=== PATIENT | female | born 1955 | race Caucasian/White ===

== ENCOUNTER 2023-12-12 13:17 | Emergency (ER) | payer BC, MEDICARE ==
[~2023-12-12 13:17] MED LIST: Iopamidol 370 76% 100 ML VIAL ONE
[2023-12-12] MEDS ORDERED: Morphine 4 MG/ML VIAL ONE (14:06)
[2023-12-12] MEDS ORDERED: Mag-Al Plus 1200/1200/120 MG (30 mL) UDCUP ONE (14:07)
[2023-12-12] MEDS ORDERED: Sodium Chloride 0.9% 1,000 ML ONE (14:07)
[2023-12-12] MEDS ORDERED: Ondansetron PF 4 MG/2 ML Vial ONE (14:07)
[2023-12-12] MEDS ORDERED: Lidocaine 2% Viscous 100 ML BOTTLE ONE (14:07)
[2023-12-12 14:17] LABS: #Basophils 0.1 thou/uL (0.0-0.2); #Eosinphils 0.2 thou/uL (0.0-0.7); #Lymphocytes 1.5 thou/uL (1.20-3.40); #Monocytes 0.6 thou/uL (0.11-0.59); #Neutrophils 5.9 thou/uL (1.40-6.50); %Basophils 1.1 % (0.0-1.0); %Eosinophils 2.2 % (0.0-10.0); %Lymphocytes 18.4 % (21.0-51.0); %Monocytes 7.5 % (0.0-10.0); %Neutrophils 70.8 % (42.0-75.0); Hematocrit 39.9 % (36.0-47.0); Mean Corpuscular HGB CONC 30.1 g/dL (32.0-36.0); Mean Corpuscular Hemoglobin 24.1 pg (27.0-31.0); Mean Corpuscular Volume 80.1 fl (78.0-98.0); Mean Platelet Volume 7.7 fL (7.4-10.4); Platelet Count 165 10x3/uL (130-400); RBC Distribution Width 14.3 % (11.5-14.5); Red Blood Cell (RBC) Count 4.99 mill/uL (4.20-5.40); White Blood Cell (WBC) Count 8.4 10x3/uL (4.8-10.8)
[2023-12-12 14:35] LABS: ALT (SGPT) 15 U/L (8-55); AST (SGOT) 17 U/L (5-34); Alkaline Phosphatase 87 U/L (40-110); Anion Gap 16 mmol/L (10-20); BUN (Urea Nitrogen) 22 mg/dL (9.8-20.1); Bilirubin, Total 0.3 mg/dL (0.2-1.2); CK (CPK) 189 U/L (29-168); Calc. Creatinine Clearance 0 mL/min (70-130); Calcium 9.1 mg/dL (7.8-10.44); Carbon Dioxide 23 mmol/L (23-31); Chloride 107 mmol/L (98-107); Estimated GFR 36; Globulin 2.9 g/dL (2.4-3.5); Glucose 131 mg/dL (80-115); Lipase 46 U/L (8-78); Potassium 4.5 mmol/L (3.5-5.1); Protein, Total 6.9 g/dL (5.8-8.1); Sodium 141 mmol/L (136-145)
== END 2023-12-12 18:14 | disposition home or self-care (01) ==
LOC: NAV ERS 13:17
DX: K44.9 Diaphragmatic hernia without obstruction or gangrene (principal); N17.9 Acute kidney failure, unspecified; R19.7 Diarrhea, unspecified; E11.9 Type 2 diabetes mellitus without complications; F17.210 Nicotine dependence, cigarettes, uncomplicated
CPT/HCPCS: 71275; 74177; 80053; 82550; 83690; 84484; 85025; 85379; 93005; 96361; 96374; J2270; J2405; J7050; Q9967